=== PATIENT | female | born 1995 | race Caucasian/White ===

== ENCOUNTER 2020-08-17 03:57 | Emergency (ER) | payer OTHER ==
[~2020-08-17 03:57] MED LIST: COLACE 100MG C100 MG PO; KEFLEX CAP 500500 MG PO; NAPROSYN500 MG PO; NORCO 5-325 TA1 EACH PO
== END 2020-08-17 06:52 | disposition home or self-care (01) ==
LOC: ER1 03:57
DX: N93.9 Abnormal uterine and vaginal bleeding, unspecified (principal); F17.200 Nicotine dependence, unspecified, uncomplicated
CPT/HCPCS: 81001; 84703; 99284

== ENCOUNTER 2020-12-08 10:39 | Emergency (ER) | payer OTHER ==
[2020-12-08 12:10] LABS: HEMOGLOBIN 14.2 gm/dl (12.3-15.3); RED BLOOD COUNT 4.82 M/UL (4.00-5.10); WHITE BLOOD COUNT 6.9 K/UL (4.5-11.0)
[2020-12-08 12:31] LABS: BUN/CREATININE RATIO 18 (0-10)
== END 2020-12-08 14:05 | disposition home or self-care (01) ==
LOC: ER1 10:39
PROVIDERS: Physician Assistant
DX: O99.891 Other specified diseases and conditions complicating pregnancy (principal); R10.2 Pelvic and perineal pain; O99.331 Smoking (tobacco) complicating pregnancy, first trimester; F17.290 Nicotine dependence, other tobacco product, uncomplicated
CPT/HCPCS: 76817; 80053; 81001; 84702; 85025; 99284

== ENCOUNTER → 2020-12-10 | Outpatient (CLI) | payer OTHER | LOC: LAB 15:15 | DX: O00.90 Unspecified ectopic pregnancy without intrauterine pregnancy (principal) | CPT/HCPCS: 84702 ==

== ENCOUNTER → 2022-02-10 | Outpatient (CLI) | payer OTHER | LOC: GENOP 12:09 | DX: O99.891 Other specified diseases and conditions complicating pregnancy (principal); R10.9 Unspecified abdominal pain; R11.0 Nausea; M54.9 Dorsalgia, unspecified; Z3A.32 32 weeks gestation of pregnancy | CPT/HCPCS: 96360; 96361; 96367; 96372; 96374; C9113; J0702; J2405; J2550; U0002 ==

== ENCOUNTER 2022-03-17 16:42 | Inpatient (IN) | payer OTHER ==
[~2022-03-17] VITALS: Ht 157.5 cm; Wt 104.3 kg
[2022-03-18 01:54] LABS: HEMOGLOBIN 10.8 gm/dl (12.3-15.3)
[2022-03-18 07:29] LABS: HEMOGLOBIN 11.8 gm/dl (12.3-15.3)
[2022-03-19] MEDS ORDERED: DOCUSATE SODIU100 MG PO (10:34)
[2022-03-19] MEDS ORDERED: IBUPROFEN600 MG PO (10:34)
== END 2022-03-19 15:00 | disposition home or self-care (01) | DRG 807 ==
LOC: GENOP 16:42 → OB 03-18 01:42
PROVIDERS: Obstetrics & Gynecology; ADMIT Obstetrics & Gynecology
PROC: 10E0XZZ Delivery of Products of Conception, External Approach (ICD-10-PCS; principal; 2022-03-18)
PROC: 4A1HXCZ Monitoring of Products of Conception, Cardiac Rate, External Approach (ICD-10-PCS; 2022-03-18)
DX: O62.8 Other abnormalities of forces of labor (principal); Z37.0 Single live birth; Z3A.37 37 weeks gestation of pregnancy; Z28.310 Unvaccinated for COVID-19; O99.334 Smoking (tobacco) complicating childbirth; F17.210 Nicotine dependence, cigarettes, uncomplicated; Z83.3 Family history of diabetes mellitus; Z82.49 Family history of ischemic heart disease and other diseases of the circulatory system; Z81.8 Family history of other mental and behavioral disorders; Z82.5 Family history of asthma and other chronic lower respiratory diseases
CPT/HCPCS: 36415; 80307; 81001; 85014; 85018; 85025; 90471; 90715; J0595; J2210; J3010